=== PATIENT | female | born 1935 | race Caucasian/White ===

== ENCOUNTER 2017-03-03 14:06 | Inpatient (IN) | payer MEDICARE ==
--- NOTE | 2017-03-03 15:05 | RAD ---
INDICATION: Dizziness. COMPARISON: There are no prior studies available for comparison. TECHNIQUE: Contiguous axial sections of the brain were obtained from the skull base to the vertex without contrast. FINDINGS: The ventricles, cisterns and sulci are enlarged consistent with age-related atrophy. There are multiple focal areas of decreased density in the subcortical and periventricular white matter suggestive of moderate chronic small vessel ischemic changes. No other focal abnormality or mass effect is seen. There is no evidence for hemorrhage. No significant focal osseous abnormality is seen. The visualized portion of the paranasal sinuses and mastoid air cells appear clear. IMPRESSION: 1. NO EVIDENCE FOR GROSS ACUTE INFARCT, MASS EFFECT OR HEMORRHAGE. 2. FINDINGS MOST CONSISTENT WITH MODERATE CHRONIC SMALL VESSEL ISCHEMIC CHANGES.
[2017-03-03 15:22] LABS: Hematocrit 41 % (35-47); Hemoglobin 13.7 g/dl (12.0-16.0); Mean Corpuscular HGB Conc 34 g/dl (31-36); Mean Corpuscular Hemoglobin 31 pg (27-31); Mean Corpuscular Volume 93 fL (80-97); Mean Platelet Volume 8 um3 (7.4-10.4); Red Blood Count 4.37 10^6/ul (4.0-5.4); Red Cell Distribution Width 13 % (10.5-15); White Blood Count 6.4 10^3/ul (3.5-10.8)
[2017-03-03 15:43] LABS: Albumin 4.1 g/dL (3.2-5.2); BUN/Creatinine Ratio 15.4 (8-20); Calcium 9.7 mg/dL (8.6-10.3); EGFR African American 90.9 (>60); EGFR Non-African American 70.7 (>60); Globulin 3.8 g/dL (2-4); Potassium 3.7 mmol/L (3.5-5.0); Total Bilirubin 1.2 mg/dL (0.2-1.0); Total Protein 7.9 g/dL (6.4-8.9)
--- NOTE | 2017-03-03 15:51 | RAD ---
INDICATION: CVA. COMPARISON: There are no prior studies available for comparison. TECHNIQUE: A portable view of the chest was obtained. FINDINGS: The heart appears mildly enlarged. There is a small infiltrate which projects over the right midlung which appears to be in the right upper lobe. The left lung appears clear. No pleural effusion is seen. IMPRESSION: SMALL RIGHT UPPER LOBE INFILTRATE RECOMMEND FOLLOW-UP CHEST X-RAYS TO RESOLUTION.
[2017-03-03] MEDS ORDERED: Aspirin Low Dose CHEW TAB* 81 MG ONE (16:40)
[2017-03-03] MEDS ORDERED: Acetaminophen TAB* 325 MG PO PRN (16:40)
[2017-03-03] MEDS ORDERED: Aspirin Low Dose CHEW TAB* 81 MG PO ONE ×2 (16:40→16:42)
[2017-03-03] MEDS ORDERED: Ondansetron INJ* 2 MG/ML VIAL IV PRN (16:40)
--- NOTE | 2017-03-03 16:54 | ED ---
Martín Chau SooYoung, scribed for Kaleb Young on 03/03/17 at 1434 . Dizziness - HPI Summary HPI Summary: An 82 y/o F presents to ED with c/o lightheadedness onset yesterday AM. Pt lives alone and ambulates with a cane. Associated sx: unsteady gait. Per family , pt was behaving normally on . She thinks pt is speaking differently than normal, mildly slurred and slower. Denies numbness, weakness, CP, SOB, sore throat, fever, ear pain. No prev PMHx TIA/CVA. Non-smoker. No ETOH. Family is concerned pt may fall, she states she fell last night onto her knees. 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 Negative: Chest Pain, SOB, Fever - Allergies/Home Medications Allergies/Adverse Reactions: Allergies Allergy/AdvReac Type Severity Reaction Status Date / Time No Known Allergies Allergy Verified 03/03/17 14:39 Home Medications: Home Medications NK [No Home Medications Reported] 03/03/17 [History Confirmed 03/03/17] PMH/Surg Hx/FS Hx/Imm Hx Previously Healthy: No GI History: Reports: Other GI Disorders - diaphragm hernia Psychiatric History: Denies: Hx Autism - Cancer History Hx Chemotherapy: No Hx Radiation Therapy: No Infectious Disease History: Denies: History Other Infectious Disease, Traveled Outside the [place] in Last 30 Days - Family History Known Family History: Positive: None, Other - neg: breast CA - Social History Occupation: Retired Lives: Alone Alcohol Use: None Hx Substance Use: No Substance Use Type: Reports: None Hx Tobacco Use: No Smoking Status (MU): Never Smoked Tobacco Review of Systems Negative: Fever Negative: Sore Throat, Ear Ache Negative: Chest Pain Negative: Shortness Of Breath Neurological: Other - pos: lightheadedness Negative: Weakness, Numbness All Other Systems Reviewed And Are Negative: Yes Physical Exam Triage Information Reviewed: Yes Vital Signs On Initial Exam: Initial Vitals Temp Pulse Resp BP Pulse Ox 97.6 F 103 20 179/116 100 03/03/17 14:14 03/03/17 14:14 03/03/17 14:14 03/03/17 14:14 03/03/17 14:14 Vital Signs Reviewed: Yes Appearance: Positive: Well-Appearing, No Pain Distress Skin: Positive: Warm, Skin Color Reflects Adequate Perfusion, Dry Head/Face: Positive: Normal Head/Face Inspection Eyes: Positive: EOMI, OREN ENT: Positive: Normal ENT inspection Neck: Positive: Supple, Nontender Respiratory/Lung Sounds: Positive: Clear to Auscultation, Breath Sounds Present Cardiovascular: Positive: RRR, Pulses are Symmetrical in both Upper and Lower Extremities Abdomen Description: Positive: Nontender, Soft Bowel Sounds: Positive: Present Musculoskeletal: Positive: Normal, Strength/ROM Intact Neurological: Positive: Normal, Sensory/Motor Intact, Alert, Oriented to Person Place, Time Diagnostics - Vital Signs Vital Signs Temp Pulse Resp BP Pulse Ox 03/03/17 14:14 97.6 F 103 20 179/116 100 - Laboratory Result Diagrams: 03/03/17 14:43 03/03/17 14:43 Lab Statement: Any lab studies that have been ordered have been reviewed, and results considered in the medical decision making process. - Radiology CXR Xray Interpretation: No Acute Changes - IMPRESSION: SMALL RIGHT UPPER LOBE INFILTRATE RECOMMEND FOLLOW-UP CHEST X-RAYS TO RESOLUTION. ED physician has reviewed this radiology report and agrees. Radiology Interpretation Completed By: Radiologist - CT BRAIN CT CT Interpretation: No Acute Changes - IMPRESSION: 1. NO EVIDENCE FOR GROSS ACUTE INFARCT, MASS EFFECT OR HEMORRHAGE. 2. FINDINGS MOST CONSISTENT WITH MODERATE CHRONIC SMALL VESSEL ISCHEMIC CHANGES. ED physician has reviewed this radiology report and agrees. 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 Non-Paretic Hand: Both Correctly Best Gaze (Only Horizontal Eye Movement): Normal Visual Field Testing: No Visual Loss Facial Paresis-Pt to Smile & Close Eyes or Grimace Symmetry: Normal/Symmetrical Motor Function - Right Arm: No Drift-Holds 10 Seconds Motor Function - Left Arm: No Drift-Holds 10 Seconds Motor Function - Right Leg: No Drift-Holds 10 Seconds Motor Function - Left Leg: No Drift-Holds 10 Seconds Limb Ataxia-Must be out of Proportion to Weakness Present: Absent Sensory (Use Pinprick to Test Arms/Legs/Trunk/Face): Normal Best Language (Describe Picture, Name Items): No Aphasia Dysarthria (Read Several Words): Normal Extinction and Inattention: No Abnormality Total Score: 0 Re-Evaluation - Re-Evaluation 1 Re-Evaluation Time: 15:12 Change: Unchanged Comment: Pt is stable. 2 Re-Evaluation Time: 15:58 Change: Unchanged Comment: Discussing possible need for admission with pt and family. Dizzy Course/Dx - Course Course Of Treatment: An 82 y/o F c/o lightheadedness onset yesterday AM. Pt lives alone and ambulates with a cane. Associated sx: unsteady gait. Per family , pt was behaving normally on . She thinks pt is speaking differently than normal, mildly slurred and slower. Denies numbness, weakness, CP, SOB, sore throat, fever, ear pain. No prev PMHx TIA/CVA. Bloodwork obtained. UA pending at time of admission. Brain CT shows "1. NO EVIDENCE FOR GROSS ACUTE INFARCT, MASS EFFECT OR HEMORRHAGE. 2. FINDINGS MOST CONSISTENT WITH MODERATE CHRONIC SMALL VESSEL ISCHEMIC CHANGES." CXR shows " SMALL RIGHT UPPER LOBE INFILTRATE." - Diagnoses Provider Diagnoses: dizziness rule out TIA/CVA - Provider Notifications Discussed Care Of Patient With: Sandra Marcano - hospitalist Time Discussed With Above Provider: 15:58 Instructed by Provider To: Admit As Inpatient - Critical Care Time Critical Care Time: 30-74 min Discharge - Discharge Plan Condition: Stable Disposition: ADMITTED TO [facility] Referrals: Clary Chavez MD [Primary Care Provider] - The documentation as recorded by the Martín loera SooYoung accurately reflects the service I personally performed and the decisions made by me, Kaleb Young.
[2017-03-03] MEDS ORDERED: Zosyn per Pharmacy* NOTE FOLLOW UP SCH (17:00)
[2017-03-03 17:07] LABS: Urine Bacteria 1+ (Absent); Urine Bilirubin Negative (Negative); Urine Glucose Negative (Negative); Urine Nitrite Positive (Negative)
[2017-03-03] MEDS ORDERED: Iohexol 350* (CONTRAST) 500 ML MDV IV ONE (17:23)
--- NOTE | 2017-03-03 18:02 | RAD ---
INDICATION: Ataxia, CVA. COMPARISON: Comparison is made with a prior CT of the brain of the same date. TECHNIQUE: A CT angiogram of the head and neck was performed following intravenous injection of 80 ml of Omnipaque 350 nonionic contrast. Contiguous axial sections were obtained from the thoracic inlet through the skull vertex. Images were reconstructed in the coronal and sagittal planes and in a 3-D volume rendered format. The distal cervical internal carotid artery diameter is used as the denominator for stenosis measurement. FINDINGS: RIGHT CAROTID: The common and internal carotid arteries appear patent without evidence for hemodynamically significant stenosis. There is mild calcific plaque present within the carotid bulb. LEFT CAROTID: The common and internal carotid arteries appear patent without evidence for hemodynamically significant stenosis. There is mild calcific plaque present within the carotid bulb. VERTEBRALS: The vertebral arteries appear patent. CTA BRAIN: The internal carotid, anterior and middle cerebral arteries appear patent without evidence for high-grade stenosis or occlusion. The cavernous portion of the internal carotid arteries appear ectatic on both sides. The vertebral, basilar and posterior cerebral arteries appear patent without evidence for high-grade stenosis or occlusion. The basilar artery is small in caliber which is least partly due to the fact that both posterior cerebral arteries arise from the posterior communicating arteries. The visualized portion of the aortic arch appears tortuous and ectatic. No gross focal perfusion abnormalities are seen. No aneurysm or vascular malformation is seen. NECK: No significant enlarged lymph nodes are seen within the neck. The parotid and submandibular glands appear to be within normal limits. The thyroid gland appears small in caliber. There is bilateral apical pleural and parenchymal scarring. The sinuses are clear. IMPRESSION: NO EVIDENCE FOR CAROTID STENOSIS OR LARGE VESSEL INTRACRANIAL THROMBUS. CPT II Codes: 3100F
--- NOTE | 2017-03-03 21:27 | HP ---
CC: Dr. Galloway; Dr. Goode * HISTORY AND PHYSICAL: DATE OF ADMISSION: 03/03/17 PRIMARY CARE PROVIDER: None. ATTENDING PHYSICIAN WHILE IN THE HOSPITAL: Dr. Sandra Goldstein * (report dictated by Sandeep Lara NP) CONSULTING NEUROLOGIST: Dr. Galloway. CHIEF COMPLAINT: Unsteady gait. HISTORY OF PRESENT ILLNESS: Ms. Marr is an 82-year-old female patient, who only has a history of hiatal hernia. She does not see a physician. She says she has been told she has hypertension in the past, but has never taken any meds for. She comes into the ER today stating that night into Sunday morning, she woke up and was feeling dizzy, just feeling little lightheaded, it was much worse when she stood up and she noticed it when she was walking. She was always needing to hold on to something. Her daughter has noticed that she has been holding on things with her right side and the patient says that it feels like her right side feels off. There have been no reports of facial drooping. There have been reports of the patient's speech does appear to be slurred and they have noticed that her gait has been off and she has been having to hold on to things on her right side. She says she feels lightheaded and she says it does not feel like the room is spinning and she has no associated nausea and she denied having any visual changes. The family was concerned because they know their mother for the longest time has been walking independently without a cane and now she is using a cane, so they brought the patient to the hospital to be evaluated. PAST MEDICAL HISTORY: Significant for hiatal hernia. PAST SURGICAL HISTORY: Denied. MEDICATIONS: Home medications were denied. ALLERGIES TO MEDICATIONS: Include no known drug allergies. FAMILY HISTORY: Mother had a stroke in her 80s. Her father's history is unknown. SOCIAL HISTORY: She does not smoke. She does not drink. She lives alone. Surrogate decision maker is her daughter, Elaine, and her son. REVIEW OF SYSTEMS: There is no double vision. She denied having any ear discharge. There was no rhinorrhea. No sore throat. No thyroid enlargement. Denied having any chest pain. There was no orthopnea. She denied having any orthopnea, no nocturnal dyspnea. There is no abdominal pain. No nausea, no vomiting. There was no dysuria. She does admit to having urine that has been foul smelling in the last couple of days, but no dysuria or frequency. There has been no seizure, no loss of consciousness. No pruritus and no skin ulcerations. Review of 14 systems was completed, all others negative. PHYSICAL EXAMINATION GENERAL: At this time, Ms. Marr is an 82-year-old female patient. She appears to be well nourished, well developed. She does not appear to be in any acute distress. VITAL SIGNS: Reveal blood pressure 149/80 with a pulse of 75, respirations were 20, O2 sat was 98%, and temperature 97.6. HEENT: Head is atraumatic and normocephalic. Eyes: EOMs are intact. Sclerae anicteric and not pale. Throat: Oral mucosa appears to be moist. No oropharyngeal erythema. NECK: Supple. LUNGS: Clear to auscultation bilaterally. No wheezes, rales, or rhonchi. HEART: Sounds S1 and S2. Regular rate and rhythm. No murmurs, rubs, or gallops. ABDOMEN: Soft, it was flat and nontender. Bowel sounds present. EXTREMITIES: Pulses were 2+ throughout. She is able to move all 4 extremities with 5/5 strength. NEUROLOGIC: She is awake, she is alert, she is oriented x3. Her regional director of finance were equal. Her tongue is midline. [id number] on the right side, she definitely did have some discoordination. She has some discoordination on the right side, she was having trouble touching the tip of my finger, she was touching the side of my finger, and same with the nose, she was touching the side of her nose, cannot really get the tip of her nose. On the left side, it was completely intact. [id number] is intact bilaterally. Her gait definitely was ataxic. She was having difficulty with her right side. She needed to immediately grab on to me to help with her gait. No other gross focal deficits. SKIN: Grossly intact. DIAGNOSTIC STUDIES/LAB DATA: Today revealed WBC of 6.4, RBC of 4.37, hemoglobin 13.7, hematocrit 41, platelet count of 220. The INR was 0.93, PTT of 32.5. Carbon monoxide is less than 3.5. Her sodium was 137, potassium 3.7, chloride 103, bicarb 23, BUN 12, creatinine 0.78, glucose 101, lactate 1.4, calcium 9.7. Total bili 1.2, AST 21, ALT 11, alk phos 55. Troponin 0. Albumin of 4.1. There was a brain CT obtained today, which showed no evidence of gross acute infarct, mass effect, or hemorrhage. Findings most consistent with moderate chronic small vessel ischemic changes. Chest x-ray showed small right upper lobe infiltrate, recommend followup chest x - rays. EKG obtained today showed what appears to be a sinus rhythm, and then on the end of the rhythm, she does have a 3-beat run, which appears to be SVT, again it is hard to call this as AFib. She does not have any ST elevations or T-wave inversions. There is previous EKG, it appears to be similar but that SVT does appear to be new. Old medical records were reviewed. ASSESSMENT AND PLAN: Ms. Marr is an 82-year-old female patient coming into the ER today with complaints of difficulty with walking. On evaluation here, there was concern for ataxia, possible stroke, we were asked to evaluate for admission. She will be admitted under inpatient status for: 1. Ataxia. I am concerned that she may have had a posterior cerebrovascular accident. I did touch base with Dr. Galloway. We are going to go ahead and give her aspirin. We will check lipid panel, A1c. In addition to this, I will get an MRI, CTA of head and neck, echo, and we will put her on neuro checks. I did order PT/OT evaluation and I also ordered a swallow evaluation as well because there was report by family that a couple of days ago, she did choke on some oatmeal. She was sneezing and then she choked. So, I am concerned that she may have aspirated. I do not think it is related to her presentation, but the chest x-ray does show the right upper lobe infiltrate, so for the time being though we will get again Neurology involved and do CTA, echo, and MRI. 2. Aspiration pneumonia. Again, she aspirated 2 days ago prior to having her symptoms of ataxia. She was eating oatmeal and again did sneeze while she was eating and she choked after this. She does have right upper lobe infiltrate. I am going to go ahead and put her on Zosyn and again, I did order a bedside swallowing eval. If she passes up with nursing, we will go ahead and proceed with a heart- healthy diet. 3. DVT prophylaxis. For the time being, I am going to put her on SCDs with concern of posterior stroke. 4. Code status. Full code. 5. Fluids, electrolytes, and nutrition. Again, n.p.o. pending bedside swallow eval and she can be on a heart-healthy diet. 6. Hiatal hernia. We will set up a primary, she can follow. TIME SPENT: On the admission was approximately 60 minutes; greater than half the time was spent [id number] with the patient obtaining my history and physical, other half the time was spent going over the plan of care with the patient and implementing the plan of care. I did discuss plan of care with my attending, Dr. Goldstein; she is in agreement. SANDEEP LARA, SÁNCHEZ [id number]/CPS #: [id number] [place]
[2017-03-03] MEDS: ZOSYN 3.375 GM Q8H per EXTENDED INFUSION IVPB SCH ×2 (22:20)
[2017-03-04] MEDS: ZOSYN 3.375 GM Q8H per EXTENDED INFUSION IVPB SCH ×6 (04:58→20:32)
[2017-03-04 05:36] LABS: Hematocrit 37 % (35-47); Hemoglobin 12.4 g/dl (12.0-16.0); Mean Corpuscular HGB Conc 34 g/dl (31-36); Mean Corpuscular Hemoglobin 32 pg (27-31); Mean Corpuscular Volume 93 fL (80-97); Mean Platelet Volume 8 um3 (7.4-10.4); Red Blood Count 3.93 10^6/ul (4.0-5.4); Red Cell Distribution Width 13 % (10.5-15); White Blood Count 5.7 10^3/ul (3.5-10.8)
[2017-03-04 05:52] LABS: BUN/Creatinine Ratio 17.1 (8-20); Calcium 8.8 mg/dL (8.6-10.3); EGFR African American 93.7 (>60); EGFR Non-African American 72.9 (>60); HDL Cholesterol 59.9 mg/dL; Potassium 3.7 mmol/L (3.5-5.0)
[2017-03-04] MEDS: Aspirin Low Dose CHEW TAB* 81 MG PO SCH (09:17)
--- NOTE | 2017-03-04 12:37 | CONS ---
CONSULTATION REPORT: DATE OF CONSULT: 03/04/17 REQUESTING PRACTITIONER: Sandeep Lara NP REASON FOR CONSULT: Ataxia and wooziness ?stroke. HISTORY OF PRESENT ILLNESS: Antoinette Marr is an 82-year-old right-handed woman with minimal past medical history, not on medications, who presented to the emergency room after onset of new symptoms originally on 03/02/17. Mrs. Marr indicates that she was feeling okay on night. When she went to sleep, she noticed her left eye burning, but she did not notice any change in vision. Sunday morning she is not sure when she started feeling woozy , but noticed she had to hold on to cupboards to walk. She started using a cane and when her kids noticed that she was using a cane, encouraged her to come to the emergency room, which she did on Sunday, the . She was noted to have difficulty with ataxia on the right side and questioned to have stroke and was admitted for stroke workup. She has been started on aspirin. CT in the emergency room showed a moderate amount of small vessel ischemic disease in the periventricular area, this film was reviewed directly and agreed with the interpretation. In addition, there appeared to be a more distinct right parietal hypodense region. She also had a CTA of the brain and neck, which showed no significant stenosis or thrombosis, this film was reviewed directly. PAST MEDICAL HISTORY: Includes a hiatal hernia, for which she has not had surgery. She was told her cholesterol was up in the past and she changed her diet. She denies any history of hypertension. MEDICATIONS: She is on no medications. ALLERGIES: Has no known drug allergies. SOCIAL HISTORY: Mrs. Marr does not smoke or drink alcohol. She is a . She has a daughter who lives in [place], and a total of 3 children. REVIEW OF SYSTEMS: She denies chest pain, pressure, shortness of breath an palpitations. There has been no loss of vision. She denies any double vision. There has been no change in speech. No numbness or weakness of arms or legs that she can determine. No change in bowel or bladder habits. No cough. When asked about cold, she indicated her nose was running on when she was outdoors painting steps. There has been no rash to her knowledge. She denies any weight loss or drenching night sweats. She denied any vertigo until the very end of the consult when she mentioned that this morning, she turned toward her IV on the right and turned to the left and the room swirled for approximately 1 to 2 minutes. She denies change in mood or cognition. PHYSICAL EXAMINATION: On examination, Mrs. Marr's most recent temperature was 99.2 degrees Fahrenheit, this is the highest recording since admission. Her blood pressure was 148/71. (She has had blood pressure as high as 179 systolic and 116 diastolic in the emergency room and repeated high systolic since at 174, and diastolic at 104.) Pulse was noted at 70, respiratory rate 18 , saturation on room air 98%. She had a regular cardiac rhythm. No murmur was detected. No carotid bruit. Her lungs appeared clear to auscultation with exception of the question of some decreased air entry at the right upper lobe. She had no peripheral edema and peripheral pulses were intact. No rashes were noted. She is awake, alert, oriented to hospital events, person. She had normal language function. Her pupils were equal and responsive to light. Her fundi were flat with normal vasculature. She had full extraocular movements with no nystagmus and full brown to confrontation. Her facial expression, sensation were equal. Hearing was decreased to finger rub on the right side. The palate was upgoing. Tongue was midline. Sternocleidomastoid and trapezius were 5/5 in strength. There was normal bulk and tone with no pronator drift. She gave good strength in the upper and lower extremities with the exception of the right triceps, biceps at 5-/5, and right intrinsic hand muscles at 4+ to 5-/ 5. Her legs appeared to have equal strength. There was dysmetria noted with [id number] movements in the right arm that could be consistent with weakness. In the right leg, there was questioned to be slight dysmetria. She denies any asymmetries to pinprick, cold or light touch. Her vibration sensation was absent at the toes, decreased at the ankle by 20 seconds. Her reflexes were 2+ and symmetric in the upper and lower extremities with the exception of the ankles that were slightly diminished. She had upgoing toe on the right, down on the left. Gait was not tested given clinical status. DIAGNOSTIC STUDIES/LAB DATA: Includes lipid profile that showed a total cholesterol of 191, LDL was 120, HDL 59.9, triglycerides 57. She had a chest x-ray, which showed small right upper lobe infiltrate with suggestion of following this in the future. This film was reviewed directly. Urinalysis showed 3+ esterase, positive nitrite, 2+ white blood cell count, 1+ bacteria. Cultures should be pending. EKG showed [address] of the brain showed moderate small-vessel ischemic disease in the periventricular area and on my review, a question of right parietal old lesion. CTA of the brain showed no significant stenosis or thrombus. Please see reports for further details. Her initial CBC was normal and on repeat had slight decrease in red blood cell count and increase in MCH. Her INR and PTT were within normal limits. Her chemistry profile today was normal. Her glucose on admission was 101. Her total bilirubin on admission was 1.2 and otherwise her complete metabolic panel was normal. Her lactate was 1.4. IMPRESSION: Mrs. Marr is an 82-year-old right-handed woman with minimal past medical history, now with acute onset of "wooziness" with decreased balance and findings on exam of subtle right arm weakness and dysmetria on the right side greater than left, which could be consistent with weakness and a positive Babinski on the right. I agree with the differential diagnosis of stroke given acute onset of symptoms and findings on examination. She has been started on aspirin. I would start her atorvastatin. Her LDL was 120. There is some history to suggest she may have had high cholesterol in the past. Her blood pressure is running high, but I would hold on treating at this time unless it gets above 180/100 persistently to allow for perfusion. She is on telemetry. Echocardiogram and MRI have been ordered, which should help clarify etiology of symptoms. Consult is in for PT and OT. She had 1 episode of vertigo this morning of unclear etiology. This may be related to her original symptoms or separate; an MRI will help to clarify. We will continue to follow with you. There is also findings of urinary tract infection on urinalysis and cultures is pending. There was a right upper lobe infiltrate on chest x-ray with comment of need to follow in the future and this was discussed with Dr. Maria. She is currently on Zosyn. TIME SPENT: Over an hour was spent in direct [id number] patient care in addition to another 15 minutes reviewing films and coordinating care. All questions were answered. [id number]/[facility] #: [id number] CHELSEA
--- NOTE | 2017-03-04 16:16 | PN ---
Subjective Date of Service: 03/04/17 Interval History: Patient seen this morning with daughter present. Reports an episode of dizziness this morning when attempting to ambulate. Denies dysuria or urinary frequency but reports foul odor in urine. No coughing or fever. Family History: Unchanged from Admission Social History: Unchanged from Admission Past Medical History: Unchanged from Admission Objective Active Medications: Acetaminophen (Tylenol Tab*) 650 mg PO Q4H PRN Aspirin (Aspirin Low Dose Tab*) 81 mg PO DAILY [facility] Atorvastatin Calcium (Lipitor*) 10 mg PO 1700 [facility] Piperacillin Sod/Tazobactam (Sod 3.375 gm/ Sodium Chloride) 100 mls @ 25 mls/ hr IVPB Q8H MJ Ondansetron HCl (Zofran Inj*) 4 mg IV Q6H PRN Pharmacy Consult (Zosyn Per Pharmacy*) 1 note FOLLOW UP .ZOSYN PER PHARMACY [facility] Vital Signs 03/03/17 03/03/17 03/03/17 16:30 17:00 17:07 Temperature Pulse Rate 66 69 Respiratory 18 Rate Blood Pressure 160/104 170/84 (mmHg) O2 Sat by Pulse 97 98 Oximetry 03/04/17 03/04/17 03/04/17 07:38 09:22 11:04 Temperature 99.2 F Pulse Rate 51 73 Respiratory 18 18 Rate Blood Pressure 147/71 115/64 (mmHg) O2 Sat by Pulse 98 95 Oximetry 03/04/17 15:25 Temperature 98.6 F Pulse Rate 57 Respiratory 16 Rate Blood Pressure 113/70 (mmHg) O2 Sat by Pulse 97 Oximetry Oxygen Devices in Use Now: None Appearance: Elderly, F, laying in bed in NAD Eyes: No Scleral Icterus Ears/Nose/Mouth/Throat: Mucous Membranes Moist, - - poor dentition Neck: NL Appearance and Movements; NL JVP Respiratory: Symmetrical Chest Expansion and Respiratory Effort, Clear to Auscultation Cardiovascular: NL Sounds; No Murmurs; No JVD, RRR Abdominal: NL Sounds; No Tenderness; No Distention Lymphatic: No Cervical Adenopathy Extremities: No Edema Skin: No Rash or Ulcers Neurological: Alert and Oriented x 3, - - CN II-XII intact, maybe some slight decreased strenght in RUE, mild impairment of [id number] on the R side, sensation intact and symmetric, did not assess gait Result Diagrams: 03/04/17 05:26 03/04/17 05:25 Microbiology and Other Data: Microbiology 03/03/17 16:50 Urine Culture - Preliminary Urine Escherichia Coli Assess/Plan/Problems-Billing Assessment: Possible posterior CVA, ?UTI, aspiration PNA in an 82 yo F without much PMH - Patient Problems (1) CVA (cerebral vascular accident) Current Visit: Yes Comment: Appreciate Neurology assistance. Continue ASA, statin. CTA H/N unremarkable. Echo and MRI pending. (2) UTI (urinary tract infection) Current Visit: Yes Comment: Continue ABx for now, await cultures (3) Aspiration into airway Current Visit: Yes Comment: Had event a few days prior to admission. Continue ABx for now. May not need full course as she seems asymptomatic. (4) DVT prophylaxis Current Visit: Yes Comment: SCDs Status and Disposition: Inpatient for CVA work-up
[2017-03-04] MEDS ORDERED: Atorvastatin* 10 MG TAB PO SCH (17:00)
[2017-03-05] MEDS: ZOSYN 3.375 GM Q8H per EXTENDED INFUSION IVPB SCH ×6 (04:41→20:33)
[2017-03-05] MEDS: Aspirin Low Dose CHEW TAB* 81 MG PO SCH (09:55)
--- NOTE | 2017-03-05 13:33 | PN ---
Subjective Date of Service: 03/05/17 Interval History: No cough, SOB, chest pain. Walks OK with walker. No new c/o. Family History: Unchanged from Admission Social History: Unchanged from Admission Past Medical History: Unchanged from Admission Objective Active Medications: Acetaminophen (Tylenol Tab*) 650 mg PO Q4H PRN PRN Reason: FEVER/PAIN Aspirin (Aspirin Low Dose Tab*) 81 mg PO DAILY [facility] Last Admin: 03/05/17 09:55 Dose: 81 mg Atorvastatin Calcium (Lipitor*) 10 mg PO 1700 [facility] Last Admin: 03/04/17 17:33 Dose: Not Given Piperacillin Sod/Tazobactam (Sod 3.375 gm/ Sodium Chloride) 100 mls @ 25 mls/ hr IVPB Q8H [facility] Last Admin: 03/05/17 04:41 Dose: 25 mls/hr Ondansetron HCl (Zofran Inj*) 4 mg IV Q6H PRN PRN Reason: NAUSEA Pharmacy Consult (Zosyn Per Pharmacy*) 1 note FOLLOW UP .ZOSYN PER PHARMACY [facility] Vital Signs 03/04/17 03/04/17 03/04/17 15:25 18:18 19:22 Temperature 98.6 F 98.9 F Pulse Rate 57 73 Respiratory 16 20 16 Rate Blood Pressure 113/70 131/70 (mmHg) O2 Sat by Pulse 97 95 Oximetry 03/04/17 03/05/17 03/05/17 20:00 00:24 02:43 Temperature 98.1 F 98.3 F Pulse Rate 72 58 Respiratory 16 16 20 Rate Blood Pressure 136/79 143/82 (mmHg) O2 Sat by Pulse 96 94 Oximetry 03/05/17 03/05/17 07:31 08:00 Temperature 97.9 F Pulse Rate 58 Respiratory 18 18 Rate Blood Pressure 139/91 (mmHg) O2 Sat by Pulse 96 Oximetry Oxygen Devices in Use Now: None Appearance: Alert, sitting up in her bed. In good spirits. Looks comfortable. Eyes: No Scleral Icterus Neck: NL Appearance and Movements; NL JVP, No Thyroid Enlargement, Masses Respiratory: Symmetrical Chest Expansion and Respiratory Effort, Clear to Auscultation, Clear to Percussion Cardiovascular: NL Sounds; No Murmurs; No JVD, RRR, No Edema, - Skin: No Rash or Ulcers, No Nodules or Sclerosis, - Neurological: Alert and Oriented x 3, NL Sensation Result Diagrams: 03/04/17 05:26 03/04/17 05:25 Microbiology and Other Data: Microbiology 03/03/17 16:50 Urine Culture - Preliminary Urine Escherichia Coli Assess/Plan/Problems-Billing Assessment: Possible posterior CVA, ?UTI, aspiration PNA in an 82 yo F without much PMH - Patient Problems (1) CVA (cerebral vascular accident) Current Visit: Yes Status: Acute Code(s): I63.9 - CEREBRAL INFARCTION, UNSPECIFIED SNOMED Code(s): 768023684 Comment: Appreciate Neurology assistance. Continue ASA, statin. CTA H/N unremarkable. Echo and MRI pending. Increase atorvastatin to 20 mg daily. (2) Pneumonia Current Visit: Yes Status: Acute Code(s): J18.9 - PNEUMONIA, UNSPECIFIED ORGANISM SNOMED Code(s): 052799335 Comment: RUL infiltrate, possibly related to aspiration. Continue pip/tz. ST swallow eval pending. (3) UTI (urinary tract infection) Current Visit: Yes Status: Acute Comment: Continue ABx C&S showed E. coli lemus-sensitive. Status and Disposition: Inpatient for CVA work-up
[2017-03-05] MEDS ORDERED: Atorvastatin* 10 MG TAB PO SCH (13:37)
[2017-03-05] MEDS: Atorvastatin* 20 MG TAB PO SCH (17:07)
--- NOTE | 2017-03-05 18:58 | PN ---
PROGRESS NOTE: DATE OF FOLLOWUP: 03/05/17 HISTORY OF PRESENT ILLNESS: Antoinette Marr has no new complaints. She was out of bed with walker (with PT) and was noted to need a walker and guard assist with plans were at this point home discharge with home PT per PT report. The patient denies any chest pain, chest pressure, palpitations, change in vision, any further episodes of vertigo, change in speech, numbness or weakness of arms or legs. PHYSICAL EXAMINATION: On examination, her most recent vitals include a temperature of 97.7 degrees Fahrenheit, pulse is 74, respiratory rate 18, saturation 96%, and blood pressure 139/91. In review of her blood pressures, they have been variable and at nighttime down to 113/70. There has been no significant increase in temperature. She had a regular cardiac rhythm. Her lungs were clear to auscultation. She had full extraocular movements with no nystagmus. Full brown to confrontation. Her facial expression was symmetric. There was no dysarthria. She had a right pronator drift. There was subtle weakness noted in the right triceps at 4+ to 5-/5 and in the right hip flexion at 5-/5. The right biceps and intrinsic hand muscles on the right appeared to improve from yesterday. There was continued dysmetria in the right arm greater than leg. She denied any asymmetries to sensation. LABORATORY DATA/DIAGNOSTIC STUDIES: Hemoglobin A1c was 5.4. Urine culture grew out E. coli sensitive to Zosyn, which she is being treated with for both urinary tract infection as well as chest x-ray findings. IMPRESSION: Antoinette Marr is an 82-year-old woman with acute onset of wooziness and findings of right-sided dysfunction most consistent with a presumed ischemic stroke. Her MRI of the brain is pending. She is on telemetry. Echocardiogram is pending. She has been started on aspirin and atorvastatin. PT has been involved and OT has been consulted. She is being treated for urinary tract infection and her chest x-ray showed possible pneumonia versus alternative cause for changes and she will need followup in this regard, as discussed with hospitalist team yesterday. Dr. Garcia will be taking over service tomorrow and I will let him know on her ongoing evaluation. No new findings were noted on today's visit. [id number]/[facility] #: [id number] CHELSEA
[2017-03-06] MEDS: ZOSYN 3.375 GM Q8H per EXTENDED INFUSION IVPB SCH ×4 (04:31→13:50)
[2017-03-06] MEDS: Aspirin Low Dose CHEW TAB* 81 MG PO SCH (07:55)
--- NOTE | 2017-03-06 12:21 | RAD ---
Indication: Infarct in the brainstem, ataxia, stroke. Image sequences: Sagittal and axial T1, axial T2, FLAIR, diffusion and susceptibility weighted images of the brain were obtained. Ventricular structures are midline. No midline shift is noted. Central and cortical atrophy noted. Periventricular signal abnormality likely representing chronic ischemic White matter change is noted surrounding the deep white matter and periventricular white matter. There is a focal area of restriction of diffusion involving the toyin at the level of the cerebellar peduncles. This is just left of midline and is consistent with an acute infarct. Central and cortical atrophy is noted. Mastoid air cells and paranasal sinuses are otherwise unremarkable. IMPRESSION: Acute infarct in the toyin just left of midline. Chronic ischemic White matter change. No intracranial mass or hemorrhage is noted.
--- NOTE | 2017-03-06 12:23 | ECHO ---
Patient: JAYLEN HERERRA [facility] Rec#: [id number] : 1935 Date: 03/06/2017 Age: 82y Height: 170.18 cm / 67.0 in Weight: 63.5 kg / 140.0 lbs Sex: F BSA: 1.74 Room#: [facility] Admit Date#: 03/03/2017 Type: Inpatient Referring: Sandeep Lara NP Reading: Mynor De MD Dietary Aid: Aziza Betts RDCS Transthoracic Echocardiogram Indication: CVA, ataxia BP: 128/67 HR: 89 Rhythm: NSR with PVCs Findings History: Hernia. Technical Comments: The study quality is fair. The study is technically limited due to patient body habitus. Completed at 1030. Left Ventricle: The left ventricular chamber size is normal. Mild concentric left ventricular hypertrophy is observed. There is increased basal septal hypertrophy noted without evidence of an increased gradient across the left ventricular outflow tract. There is mildly decreased left ventricular systolic function. The estimated ejection fraction is 45-50%. There is no consistent Doppler evidence of clinically significant diastolic dysfunction. Left Atrium: The left atrium is mildly dilated. Right Ventricle: The right ventricular cavity size is normal. The right ventricular global systolic function is normal. Right Atrium: The right atrial cavity size is abnormally small. Interatrial septum appears intact without evidence of shunting. There were late bubbles seen in the left atrium. A patent foramen ovale is not demonstrated with color Doppler and agitated contrast. Aortic Valve: The aortic valve is trileaflet. The aortic valve leaflets are mildly thickened. There is mild to moderate aortic regurgitation. There is no evidence of aortic stenosis. Mitral Valve: There is anterior mitral annular calcification. The mitral valve leaflets are mildly thickened. There is mild mitral regurgitation. There is no evidence of mitral stenosis. Tricuspid Valve: The tricuspid valve leaflets are mildly thickened. There is mild tricuspid regurgitation. The right ventricular systolic pressure is estimated at 38 mmHg. There is evidence of mild pulmonary hypertension. There is no tricuspid stenosis. Pulmonic Valve: The pulmonic valve appears normal. There is mild pulmonic regurgitation. There is no pulmonic stenosis. Pericardium: There is no significant pericardial effusion. A pericardial fat pad is visualized. Aorta: There is moderate dilatation of the ascending aorta. There is no dilatation of the aortic arch. There is mild dilatation of the aortic root. Pulmonary Artery: The main pulmonary artery appears normal. Venous: The inferior vena cava is dilated. There is a greater than 50% respiratory change in the inferior vena cava dimension. Contrast: Normal saline was used as contrast for the bubble study. Images 1 and 2. Intravenous contrast was used to help determine presence of intracardiac shunting. Conclusions Mild concentric left ventricular hypertrophy is observed. There is increased basal septal hypertrophy noted without evidence of an increased gradient across the left ventricular outflow tract. The estimated ejection fraction is 45-50%. There is mild mitral regurgitation. The left atrium is mildly dilated. There is mild to moderate aortic regurgitation. There is moderate dilatation of the ascending aorta. There is mild dilatation of the aortic root. There is mild tricuspid regurgitation. There is evidence of mild pulmonary hypertension. There is mild pulmonic regurgitation. Interatrial septum appears intact without evidence of shunting. No reports of prior studies are offered for comparison. Measurements Name Value Normal Range RVIDd (AP) 2D 2.6 cm (0.9 - 2.6) RVDdMajor (2D) 2.4 cm (2.2 - 4.4) RAd ISD 4CH 3 cm (3.4 - 4.9) RA (A4C)W 3 cm (2.9 - 4.6) IVSd (2D) 1.2 cm (0.6 - 1) LVPWd (2D) 1.2 cm (0.6 - 1) LVIDd (2D) 4.5 cm (3.6 - 5.4) LVIDs (2D) 2.9 cm - LV FS (2D) 35 % (25 - 45) Aortic Annulus 2 cm (1.4 - 2.6) Ao root diameter (2D) 3.8 cm (2.1 - 3.5) Ascending Ao 5.1 cm (2.1 - 3.4) Aortic arch 3.4 cm (1.8 - 3.4) LA dimension (AP) 2D 3.9 cm (2.3 - 3.8) LAd ISD 4CH 3.5 cm (2.9 - 5.3) LA ISD 4CH W 4.3 cm (2.5 - 4.5) Name Value Normal Range LA ESV SP 4CH (A/L) 44 ml - LA ESV SP 2CH (A/L) 66 ml - LA ESV BP (A/L) 60 ml - LA ESV BP (A/L) index 34.24 ml/m2 - LA ESV SP 4CH (MOD) 39 ml - LA ESV SP 2CH (MOD) 59 ml - Name Value Normal Range MV E-wave Vmax 0.43 m/sec - MV deceleration time 371 msec - MV A-wave Vmax 0.59 m/sec - MV E:A ratio 0.73 ratio - LV septal e' Vmax 0.06 m/sec - LV lateral e' Vmax 0.08 m/sec - LV E:e' septal ratio 12.17 ratio - LV E:e' lateral ratio 5.38 ratio - Name Value Normal Range AV Vmax 1.71 m/sec - AV VTI 39.2 cm - AV peak gradient 11.63 mmHg - AV mean gradient 7.24 mmHg - LVOT Vmax 0.82 m/sec - LVOT VTI 15.18 cm - LVOT peak gradient 2.66 mmHg - LVOT mean gradient 1.54 mmHg - AR PHT 346 msec - AR peak gradient 78 mmHg - Name Value Normal Range TR Vmax 2.4 m/sec - TR peak gradient 23 mmHg - RAP 15 mmHg - RVSP 38 mmHg - IVC diameter 2.3 cm - Name Value Normal Range PV Vmax 0.65 m/sec - PV peak gradient 1.67 mmHg -
--- NOTE | 2017-03-06 13:13 | DCNOTE ---
Subjective Date of Service: 03/06/17 Interval History: Some fluctuation in her sx's but overall improved. No new c/o. Family History: Unchanged from Admission Social History: Unchanged from Admission Past Medical History: Unchanged from Admission Objective Active Medications: Acetaminophen (Tylenol Tab*) 650 mg PO Q4H PRN PRN Reason: FEVER/PAIN Aspirin (Aspirin Low Dose Tab*) 81 mg PO DAILY [facility] Last Admin: 03/06/17 07:55 Dose: 81 mg Atorvastatin Calcium (Lipitor*) 20 mg PO 1700 [facility] Last Admin: 03/05/17 17:07 Dose: 20 mg Piperacillin Sod/Tazobactam (Sod 3.375 gm/ Sodium Chloride) 100 mls @ 25 mls/ hr IVPB Q8H [facility] Last Admin: 03/06/17 04:31 Dose: 25 mls/hr Ondansetron HCl (Zofran Inj*) 4 mg IV Q6H PRN PRN Reason: NAUSEA Pharmacy Consult (Zosyn Per Pharmacy*) 1 note FOLLOW UP .ZOSYN PER PHARMACY [facility] Vital Signs 03/05/17 03/05/17 03/05/17 15:18 18:29 19:36 Temperature 98.0 F 98.5 F Pulse Rate 59 66 Respiratory 16 20 16 Rate Blood Pressure 128/77 134/74 (mmHg) O2 Sat by Pulse 96 95 Oximetry 03/05/17 03/05/17 03/06/17 20:00 23:36 03:40 Temperature 98.1 F 98.1 F Pulse Rate 66 63 Respiratory 16 20 20 Rate Blood Pressure 138/74 128/67 (mmHg) O2 Sat by Pulse 96 94 Oximetry 03/06/17 03/06/17 07:34 08:00 Temperature 98.2 F Pulse Rate 61 Respiratory 24 18 Rate Blood Pressure 148/79 (mmHg) O2 Sat by Pulse 96 Oximetry Oxygen Devices in Use Now: None Appearance: Alert, sitting up in bed. In good spirits. Looks comfortable. Neck: NL Appearance and Movements; NL JVP, No Thyroid Enlargement, Masses Respiratory: Symmetrical Chest Expansion and Respiratory Effort, Clear to Auscultation, Clear to Percussion Cardiovascular: NL Sounds; No Murmurs; No JVD, RRR, No Edema, - Extremities: No Edema, No Clubbing, Cyanosis, - Skin: No Rash or Ulcers, No Nodules or Sclerosis, - Neurological: Alert and Oriented x 3, NL Sensation, - - Speech clear and fluent. Moves all limbs. Result Diagrams: 03/04/17 05:26 03/04/17 05:25 Microbiology and Other Data: Microbiology 03/03/17 16:50 Urine Culture - Preliminary Urine Escherichia Coli Assess/Plan/Problems-Billing Assessment: Possible posterior CVA, ?UTI, aspiration PNA in an 82 yo F without much PMH - Patient Problems (1) CVA (cerebral vascular accident) Current Visit: Yes Status: Acute Code(s): I63.9 - CEREBRAL INFARCTION, UNSPECIFIED SNOMED Code(s): 475710673 Comment: Continue ASA, statin. CTA H/N unremarkable. Echo showed LVEF 45-50% , no significant valvular abnomalities. MRI showed an acute infarct in the L toyin . (2) Pneumonia Current Visit: Yes Status: Acute Code(s): J18.9 - PNEUMONIA, UNSPECIFIED ORGANISM SNOMED Code(s): 109135770 Comment: RUL infiltrate, possibly related to aspiration. Complete antibiotic tx with 5 days amox/clav as outpt. ST recommended mechanical soft diet with extra sauces/gravies, thin liquids. (3) UTI (urinary tract infection) Current Visit: Yes Status: Acute Comment: Continue ABx C&S showed E. coli lemus-sensitive. Status and Disposition: Discharge now to [facility].
--- NOTE | 2017-03-06 14:23 | DS ---
CC: Dr. Clary Chavez * DISCHARGE SUMMARY: DATE OF ADMISSION: 03/03/17 DATE OF DISCHARGE: 03/06/17 HISTORY: This 82-year-old woman presented with an unsteady gait. She had not seen a physician for many years and did not take any prescription medications at home. She said she was dizzy, a little lightheaded at home, worse when she got up. She said her right side felt off as well. Her speech may have been slurred at times according to her daughter. The rest of the history is detailed in the admission note. CT scan was nonrevealing. The patient was admitted to telemetry. She was seen in consultation by Dr. Goode. She had a transthoracic echo, which showed an LVEF of 45% to 50%, but no significant valvular abnormalities. MRI of the brain showed an acute stroke in the left toyin. The patient was started on aspirin and statin. I note her LDL was 120, HDL 59.9 , total cholesterol 191. Other labs were unremarkable. The patient also had a small infiltrate in the right lingular area. She was treated with piperacillin and tazobactam. She really showed few if any signs of pneumonia. I am going to complete her antibiotic therapy with 5 days of amoxicillin/clavulanate as an outpatient. FINAL DIAGNOSES: 1. Cerebrovascular accident. 2. Aspiration pneumonia. 3. Urinary tract infection. The patient's swallow eval showed she could tolerate mechanical soft diet with extra sauce and some gravies, and thin liquids. DISCHARGE MEDICATIONS: 1. Acetaminophen 650 mg every 4 hours p.r.n. 2. Aspirin 81 mg daily. 3. Atorvastatin 20 mg daily at 5 p.m. 4. Amoxicillin/clavulanate 875 mg b.i.d. for 5 days. [id number]/CPS #: [id number] MTDD
[2017-03-06 14:28] VITALS: BP 139/78
[2017-03-06] MEDS ORDERED: Influenza VAC *QUAD* 2017-18* 0.5 ML SYRINGE IM ONE (16:00)
[2017-03-06] MEDS ORDERED: Pneumococcal *Vac Polyvalent 0.5 ML VIAL IM ONE (16:00)
[2017-03-06] MEDS: Atorvastatin* 20 MG TAB PO SCH (16:10)
== END 2017-03-06 16:54 | DRG 64 ==
LOC: ED 14:06 → INTOOBSV 16:00 → MEDTELE 16:00 → OBSVTOIN 16:00
PROVIDERS: ADMIT Internal Medicine; ATTEND Internal Medicine
DX: I63.9 Cerebral infarction, unspecified (principal); J69.0 Pneumonitis due to inhalation of food and vomit; G81.91 Hemiplegia, unspecified affecting right dominant side; N39.0 Urinary tract infection, site not specified; B96.20 Unspecified Escherichia coli [E. coli] as the cause of diseases classified elsewhere
CPT/HCPCS: 36415; 70450; 70496; 70498; 70551; 71010; 80048; 80053; 80061; 81003; 81015; 82375; 83036; 83605; 84484; 85025; 85610; 85730; 87077; 87086; 87186; 93005; 93306; A9270-GY; G8978-GP-CL; G8979-GP-CH; J2543; Q9967

== ENCOUNTER 2022-01-24 14:41 | Inpatient (IN) ==
[2022-01-24] MEDS ORDERED: Lactated Ringers 1000 ml BAG 1,000 ML IV ONE ×2 (14:47→16:13)
[2022-01-24 15:55] LABS: Hematocrit 48 % (35-47); Hemoglobin 15.4 g/dL (12.0-16.0); Mean Corpuscular HGB Conc 32 g/dL (31-36); Mean Corpuscular Hemoglobin 32 pg (27-31); Mean Corpuscular Volume 99 fL (80-97); Red Blood Count 4.82 10^6 /uL (3.70-4.87); Red Cell Distribution Width 15 % (10-15)
[2022-01-24 15:57] LABS: High Sens Troponin Baseline 47 pg/mL (<15)
[2022-01-24 16:09] LABS: Urine Appearance Cloudy; Urine Color Amber; Urine Specific Gravity 1.015 (1.005-1.030); Urine pH 8.5 (5.0-9.0)
[2022-01-24 16:10] LABS: Urine Bilirubin 1+ (Small) (Negative); Urine Blood 3+ (Large) (Negative); Urine Glucose Negative (Negative); Urine Ketones Negative (Negative); Urine Nitrite Negative (Negative); Urine Protein 3+ (>=300 mg/dL) (Negative); Urine Urobilinogen 0.2 (Negative) (Negative)
[2022-01-24 16:17] LABS: Urine Bacteria Absent (Absent); Urine Red Blood Cell 3+(>10/hpf) (Absent); Urine Squamous Epithelial Cell Present (Absent); Urine White Blood Cell 3+(>20/hpf) (Absent)
[2022-01-24] MEDS ORDERED: cefTRIAXone 1 gm/50 mL D5W 1 GM/50 ML BAG IV ONE (16:19)
[2022-01-24 16:53] LABS: ALT 18 U/L (7-52); Albumin 2.8 g/dL (3.2-5.2); Albumin/Globulin Ratio 0.9 (1-3); Alkaline Phosphatase 52 U/L (35-149); CO2 Carbon Dioxide 18 mmol/L (22-32); Calcium 8.4 mg/dL (8.6-10.3); Creatine Kinase 635 U/L (10-223); Globulin 3.2 g/dL (2-4); Glucose 120 mg/dL (70-100); eGFR CKD-EPI 27.8 (>60)
[2022-01-24 17:14] LABS: High Sensitivity Troponin 1 Hr 52 pg/mL (<15)
[2022-01-24 17:16] LABS: Blood Urea Nitrogen 133 mg/dL (6-24)
[2022-01-24 17:19] LABS: Anion Gap 17 mmol/L (2-11); Chloride 124 mmol/L (101-111); Sodium 159 mmol/L (135-145)
[2022-01-24 17:34] LABS: ABS Lymphocytes 0.9 10^3/ul (1.0-4.8); ABS Neutrophils 12.1 10^3/ul (1.5-7.7); Lymphocyte % 6.4 %; Mean Platelet Volume 10.6 fL (7.4-10.4); Platelet Count 77 10^3/uL (150-450)
[2022-01-24 20:07] LABS: Potassium, Whole Blood 3.8 mmol/L (3.4-4.5)
[2022-01-24 20:17] LABS: Phosphorus 3.8 mg/dL (2.5-5.0); Potassium 3.6 mmol/L (3.5-5.0); eGFR CKD-EPI 24.2 (>60)
[2022-01-24] MEDS: NS 0.45% 1000 ml BAG 1,000 ML IV SCH (20:46)
[2022-01-24] MEDS ORDERED: Piperacillin/Tazobac ADVAN 3.375 GM in NS 0.9% 100 ml BAG 100 ML IV ONE (22:27)
[2022-01-24] MEDS ORDERED: Vancomycin 1,000 MG in NS 0.9% 250 ml 250 ML IVPB ONE (22:47)
[2022-01-24] MEDS ORDERED: Vancomycin per Pharmacy 1 EA NOTE FOLLOW UP SCH (23:00)
[2022-01-24] MEDS ORDERED: Zosyn per Pharmacy NOTE FOLLOW UP SCH (23:00)
[2022-01-25 01:03] LABS: Calcium 9.2 mg/dL (8.6-10.3); Potassium 3.8 mmol/L (3.5-5.0); eGFR CKD-EPI 21.3 (>60)
[2022-01-25 05:33] LABS: ABS Lymphocytes 1.2 10^3/ul (1.0-4.8); ABS Monocytes 0.6 10^3/ul (0-0.8); ABS Neutrophils 11.4 10^3/ul (1.5-7.7); Hematocrit 43 % (35-47); Hemoglobin 13.9 g/dL (12.0-16.0); Lymphocyte % 8.8 %; Mean Corpuscular HGB Conc 33 g/dL (31-36); Mean Corpuscular Hemoglobin 32 pg (27-31); Mean Corpuscular Volume 97 fL (80-97); Mean Platelet Volume 10.8 fL (7.4-10.4); Nucleated Red Blood Cells % 0.3; Platelet Count 70 10^3/uL (150-450); Red Blood Count 4.39 10^6 /uL (3.70-4.87); Red Cell Distribution Width 15 % (10-15); White Blood Count 13.2 10^3/uL (3.5-10.8)
[2022-01-25 05:52] LABS: Calcium 8.9 mg/dL (8.6-10.3); Phosphorus 3.8 mg/dL (2.5-5.0); Potassium 3.7 mmol/L (3.5-5.0); eGFR CKD-EPI 21.8 (>60)
[2022-01-25] MEDS: NS 0.45% 1000 ml BAG 1,000 ML IV SCH (08:00)
[2022-01-25 08:49] LABS: Urine Creatinine Concentration 69.54 mg/dL; Urine Sodium Concentration < 18 mmol/L
[2022-01-25] MEDS: Pantoprazole VIAL 40 MG VIAL IV SCH (10:09)
[2022-01-25] MEDS: cefTRIAXone 2 gm/50 mL D5W 2 GM/50 ML BAG IV SCH (10:14)
[2022-01-25 11:00] LABS: Activated Partial Thrombo Time 32.9 seconds (26.0-38.0); INR 1.24 (0.89-1.11)
[2022-01-25] MEDS: Collagenase 250 units/gm OINT 1 tube TOPICAL SCH ×2 (14:22→15:54)
[2022-01-25] MEDS: Heparin 5000 UNITS/ML 1 mL VIAL SUBCUT SCH ×2 (14:22→22:38)
[2022-01-25] MEDS: Acetaminophen IV 1 GM/100ML 100 ML IV PRN (14:23)
[2022-01-25 16:19] LABS: Albumin 2.8 g/dL (3.2-5.2); Albumin/Globulin Ratio 0.9 (1-3); Calcium 8.6 mg/dL (8.6-10.3); Direct Bilirubin 0.3 mg/dL (0.03-0.18); Indirect Bilirubin 1.2 mg/dL (0.3-1.0); Potassium 3.4 mmol/L (3.5-5.0); Total Bilirubin 1.5 mg/dL (0.2-1.0); Total Protein 5.8 g/dL (6.4-8.9); eGFR CKD-EPI 20.5 (>60)
[2022-01-25] MEDS ORDERED: Potassium Chloride LIQUID 20 MEQ/15 ML LIQUID PO ONE (16:44)
[2022-01-26 01:30] LABS: CO2 Carbon Dioxide 17 mmol/L (22-32); Calcium 8.3 mg/dL (8.6-10.3); Sodium 152 mmol/L (135-145)
[2022-01-26 01:31] LABS: Anion Gap 11 mmol/L (2-11); Chloride 124 mmol/L (101-111)
[2022-01-26 01:36] LABS: Glucose 151 mg/dL (70-100); eGFR CKD-EPI 19.9 (>60)
[2022-01-26 01:48] LABS: Potassium, Whole Blood 3.8 mmol/L (3.4-4.5)
[2022-01-26 02:06] LABS: Blood Urea Nitrogen 147 mg/dL (6-24)
[2022-01-26] MEDS: NS 0.45% 1000 ml BAG 1,000 ML IV SCH ×2 (03:39→10:11)
[2022-01-26 05:22] LABS: ABS Lymphocytes 0.8 10^3/ul (1.0-4.8); ABS Monocytes 0.2 10^3/ul (0-0.8); ABS Neutrophils 11.8 10^3/ul (1.5-7.7); Hematocrit 39 % (35-47); Hemoglobin 12.9 g/dL (12.0-16.0); Lymphocyte % 6.2 %; Mean Corpuscular HGB Conc 33 g/dL (31-36); Mean Corpuscular Hemoglobin 32 pg (27-31); Mean Corpuscular Volume 97 fL (80-97); Mean Platelet Volume 10.7 fL (7.4-10.4); Nucleated Red Blood Cells % 0.1; Platelet Count 60 10^3/uL (150-450); Red Blood Count 4.07 10^6 /uL (3.70-4.87); Red Cell Distribution Width 15 % (10-15); White Blood Count 12.8 10^3/uL (3.5-10.8)
[2022-01-26] MEDS: Heparin 5000 UNITS/ML 1 mL VIAL SUBCUT SCH ×3 (05:50→21:12)
[2022-01-26 05:53] LABS: Calcium 8.2 mg/dL (8.6-10.3); Magnesium 2.9 mg/dL (1.9-2.7); Vancomycin Random 9.3 mcg/mL; eGFR CKD-EPI 21.8 (>60)
[2022-01-26] MEDS ORDERED: Vancomycin Random Level NOTE FOLLOW UP ONE (06:00)
[2022-01-26] MEDS: cefTRIAXone 2 gm/50 mL D5W 2 GM/50 ML BAG IV SCH (09:18)
[2022-01-26] MEDS ORDERED: Albumin Human 5% 12.5 GM/250 ML BTL IV ONE (09:18)
[2022-01-26] MEDS: Pantoprazole VIAL 40 MG VIAL IV SCH (09:18)
[2022-01-26] MEDS: Collagenase 250 units/gm OINT 1 tube TOPICAL SCH (11:13)
[2022-01-26] MEDS: Lactated Ringers 1000 ml BAG 1,000 ML IV SCH ×2 (11:34→19:30)
[2022-01-26 12:37] LABS: Calcium 8.1 mg/dL (8.6-10.3); Potassium 3.9 mmol/L (3.5-5.0); eGFR CKD-EPI 22.1 (>60)
[2022-01-26] MEDS: Acetaminophen IV 1 GM/100ML 100 ML IV PRN (14:04)
[2022-01-26 19:47] LABS: Calcium 8.1 mg/dL (8.6-10.3); eGFR CKD-EPI 24.5 (>60)
[2022-01-27 00:27] LABS: Blood Urea Nitrogen 80 mg/dL (6-24); Glucose 100 mg/dL (70-100); eGFR CKD-EPI 49.5 (>60)
[2022-01-27 00:30] LABS: Anion Gap 9 mmol/L (2-11); CO2 Carbon Dioxide 13 mmol/L (22-32); Calcium 5.3 mg/dL (8.6-10.3); Chloride 130 mmol/L (101-111); Sodium 152 mmol/L (135-145)
[2022-01-27 01:38] LABS: Calcium 7.1 mg/dL (8.6-10.3); Potassium 3.4 mmol/L (3.5-5.0); eGFR CKD-EPI 34.8 (>60)
[2022-01-27] MEDS ORDERED: Potassium Chloride LIQUID 20 MEQ/15 ML LIQUID PO ONE (01:57)
[2022-01-27] MEDS: Lactated Ringers 1000 ml BAG 1,000 ML IV SCH ×4 (02:45→23:45)
[2022-01-27 05:03] LABS: Magnesium 2.7 mg/dL (1.9-2.7); Potassium 4.2 mmol/L (3.5-5.0); eGFR CKD-EPI 31.5 (>60)
[2022-01-27 05:27] LABS: Hematocrit 34 % (35-47); Hemoglobin 10.9 g/dL (12.0-16.0); Mean Corpuscular HGB Conc 32 g/dL (31-36); Mean Corpuscular Hemoglobin 31 pg (27-31); Mean Corpuscular Volume 98 fL (80-97); Mean Platelet Volume 11.2 fL (7.4-10.4); Platelet Count 57 10^3/uL (150-450); Red Blood Count 3.46 10^6 /uL (3.70-4.87); Red Cell Distribution Width 15 % (10-15); White Blood Count 12.2 10^3/uL (3.5-10.8)
[2022-01-27] MEDS: Heparin 5000 UNITS/ML 1 mL VIAL SUBCUT SCH ×3 (06:31→23:39)
[2022-01-27 07:28] LABS: RBC Morphology Normal (Normal)
[2022-01-27 07:29] LABS: ABS Lymphocytes 0.8 10^3/ul (1.0-4.8); ABS Monocytes 0.2 10^3/ul (0-0.8); ABS Neutrophils 11.1 10^3/ul (1.5-7.7); Eosinophil % 0.1 %; Lymphocyte % 6.8 %; Nucleated Red Blood Cells % 0.1
[2022-01-27] MEDS: cefTRIAXone 2 gm/50 mL D5W 2 GM/50 ML BAG IV SCH (09:05)
[2022-01-27] MEDS: Collagenase 250 units/gm OINT 1 tube TOPICAL SCH (09:05)
[2022-01-27] MEDS: Pantoprazole VIAL 40 MG VIAL IV SCH (09:06)
[2022-01-27] MEDS: Acetaminophen IV 1 GM/100ML 100 ML IV PRN (10:08)
[2022-01-27 18:19] LABS: Calcium 7.8 mg/dL (8.6-10.3); Magnesium 2.5 mg/dL (1.9-2.7); Potassium 3.9 mmol/L (3.5-5.0); eGFR CKD-EPI 39.3 (>60)
[2022-01-28] MEDS: Heparin 5000 UNITS/ML 1 mL VIAL SUBCUT SCH ×3 (06:14→21:15)
[2022-01-28 06:29] LABS: ABS Eosinophils 0.1 10^3/ul (0-0.6); ABS Lymphocytes 0.6 10^3/ul (1.0-4.8); ABS Monocytes 0.3 10^3/ul (0-0.8); ABS Neutrophils 9.6 10^3/ul (1.5-7.7); Eosinophil % 0.6 %; Hematocrit 31 % (35-47); Hemoglobin 10.4 g/dL (12.0-16.0); Lymphocyte % 5.6 %; Mean Corpuscular HGB Conc 33 g/dL (31-36); Mean Corpuscular Hemoglobin 32 pg (27-31); Mean Corpuscular Volume 97 fL (80-97); Mean Platelet Volume 11.6 fL (7.4-10.4); Nucleated Red Blood Cells % 0.2; Platelet Count 69 10^3/uL (150-450); Red Blood Count 3.21 10^6 /uL (3.70-4.87); Red Cell Distribution Width 15 % (10-15); White Blood Count 10.6 10^3/uL (3.5-10.8)
[2022-01-28 06:41] LABS: Calcium 7.7 mg/dL (8.6-10.3); Magnesium 2.3 mg/dL (1.9-2.7); Potassium 4.3 mmol/L (3.5-5.0)
[2022-01-28] MEDS: Lactated Ringers 1000 ml BAG 1,000 ML IV SCH (07:03)
[2022-01-28] MEDS: cefTRIAXone 2 gm/50 mL D5W 2 GM/50 ML BAG IV SCH (08:30)
[2022-01-28] MEDS: Pantoprazole VIAL 40 MG VIAL IV SCH (08:35)
[2022-01-28] MEDS ORDERED: D5W 1000 ml BAG 1,000 ML IV SCH (12:00)
[2022-01-28 13:06] LABS: Calcium 7.9 mg/dL (8.6-10.3); Potassium 4.4 mmol/L (3.5-5.0); eGFR CKD-EPI 53.2 (>60)
[2022-01-28] MEDS: Collagenase 250 units/gm OINT 1 tube TOPICAL SCH (13:21)
[2022-01-28 19:22] LABS: Calcium 7.7 mg/dL (8.6-10.3); Potassium 4.6 mmol/L (3.5-5.0); eGFR CKD-EPI 57.3 (>60)
[2022-01-28] MEDS: Acetaminophen IV 1 GM/100ML 100 ML IV PRN (21:15)
[2022-01-29] MEDS: D5W 1000 ml BAG 1,000 ML IV SCH ×2 (01:04→14:49)
[2022-01-29 01:05] LABS: INR 1.03 (0.89-1.11)
[2022-01-29 01:06] LABS: Activated Partial Thrombo Time 35.8 seconds (26.0-38.0)
[2022-01-29] MEDS ORDERED: LORazepam 2 mg VIAL 1 ml IV PUSH ONE (01:10)
[2022-01-29] MEDS ORDERED: Lorazepam PYXIS KEY PRN (01:10)
[2022-01-29] MEDS ORDERED: Phenol 1.4% Throat Spray 177 ml BTL MT ONE (01:10)
[2022-01-29] MEDS: Heparin 5000 UNITS/ML 1 mL VIAL SUBCUT SCH (05:43)
[2022-01-29 06:24] LABS: Hematocrit 31 % (35-47); Mean Corpuscular HGB Conc 33 g/dL (31-36); Mean Corpuscular Hemoglobin 31 pg (27-31); Mean Corpuscular Volume 96 fL (80-97); Mean Platelet Volume 10.8 fL (7.4-10.4); Platelet Count 81 10^3/uL (150-450); Red Blood Count 3.17 10^6 /uL (3.70-4.87); Red Cell Distribution Width 15 % (10-15); White Blood Count 12.1 10^3/uL (3.5-10.8)
[2022-01-29 06:55] LABS: Calcium 7.7 mg/dL (8.6-10.3); Magnesium 2.1 mg/dL (1.9-2.7); Potassium 4.2 mmol/L (3.5-5.0); eGFR CKD-EPI 56.6 (>60)
[2022-01-29 08:09] LABS: ABS Eosinophils 0.1 10^3/ul (0-0.6); ABS Lymphocytes 0.9 10^3/ul (1.0-4.8); ABS Monocytes 0.5 10^3/ul (0-0.8); ABS Neutrophils 10.6 10^3/ul (1.5-7.7); Eosinophil % 0.7 %; Lymphocyte % 7.2 %; Nucleated Red Blood Cells % 0.1
[2022-01-29] MEDS: Pantoprazole VIAL 40 MG VIAL IV SCH (09:48)
[2022-01-29] MEDS: cefTRIAXone 2 gm/50 mL D5W 2 GM/50 ML BAG IV SCH (09:48)
[2022-01-29] MEDS: Collagenase 250 units/gm OINT 1 tube TOPICAL SCH (09:49)
[2022-01-29] MEDS: Acetaminophen IV 1 GM/100ML 100 ML IV PRN (11:29)
[2022-01-29 15:13] LABS: Hematocrit 26 % (35-47); Hemoglobin 8.1 g/dL (12.0-16.0)
[2022-01-29] MEDS ORDERED: NS 0.9% 1000 ml BAG 1,000 ML IV ONE (15:46)
[2022-01-29 15:49] LABS: Calcium 7.1 mg/dL (8.6-10.3); Potassium 4.4 mmol/L (3.5-5.0); eGFR CKD-EPI 54.5 (>60)
[2022-01-29 16:13] LABS: Hematocrit 26 % (35-47); Hemoglobin 8.2 g/dL (12.0-16.0)
[2022-01-29] MEDS ORDERED: Lactated Ringers 1000 ml BAG 1,000 ML IV SCH (17:00)
[2022-01-29] MEDS ORDERED: Ondansetron 4 mg VIAL 2 MG/ML 2 ml VIAL IV PRN (17:30)
[2022-01-29] MEDS ORDERED: Morphine 2 MG/ML SYRINGE IV PRN (17:30)
[2022-01-29] MEDS ORDERED: LORazepam 2 mg VIAL 1 ml IV PUSH PRN (17:30)
[2022-01-29] MEDS ORDERED: Atropine 1% (ORAL/SL) 15 ML BTL SL PRN (17:30)
[2022-01-29] MEDS ORDERED: Pantoprazole VIAL 40 MG VIAL IV SCH (21:00)
[2022-01-29] MEDS: Morphine ORAL CONCENTRATE 5 MG/0.25 ML ORAL.SYRIN PO PRN (23:37)
[2022-01-30] MEDS: Morphine ORAL CONCENTRATE 5 MG/0.25 ML ORAL.SYRIN PO PRN ×3 (02:31→22:23)
[2022-01-30 12:36] VITALS: BP 105/58
[2022-01-30] MEDS: Collagenase 250 units/gm OINT 1 tube TOPICAL SCH (13:53)
[2022-01-31] MEDS: Morphine ORAL CONCENTRATE 5 MG/0.25 ML ORAL.SYRIN PO PRN ×2 (04:11→22:24)
[2022-01-31] MEDS: Collagenase 250 units/gm OINT 1 tube TOPICAL SCH (13:20)
[2022-02-02] MEDS: Morphine ORAL CONCENTRATE 5 MG/0.25 ML ORAL.SYRIN PO PRN (15:40)
[2022-02-02] MEDS: Collagenase 250 units/gm OINT 1 tube TOPICAL SCH ×2 (15:41→16:22)
[2022-02-03] MEDS ORDERED: Senna TAB 8.6 mg TAB PO PRN (07:25)
[2022-02-03] MEDS ORDERED: Magnesium Hydroxide LIQ 30 ML UDC PO PRN (07:25)
[2022-02-03] MEDS: Collagenase 250 units/gm OINT 1 tube TOPICAL SCH (09:48)
[2022-02-03] MEDS: Polyethylene Glycol 3350 17 GM PACKET PO SCH (09:48)
[2022-02-03] MEDS: Morphine ORAL CONCENTRATE 5 MG/0.25 ML ORAL.SYRIN PO PRN ×2 (16:30→23:03)
[2022-02-04] MEDS: Morphine ORAL CONCENTRATE 5 MG/0.25 ML ORAL.SYRIN PO PRN ×3 (05:08→15:56)
[2022-02-04] MEDS: Polyethylene Glycol 3350 17 GM PACKET PO SCH (09:47)
[2022-02-04] MEDS: Collagenase 250 units/gm OINT 1 tube TOPICAL SCH (13:42)
[2022-02-04] MEDS ORDERED: COVID-19 VACCINE, MRNA(MODERNA)/PF 100 MCG/0.5 ML IM ONE (15:00)
[2022-02-05] MEDS: Morphine ORAL CONCENTRATE 5 MG/0.25 ML ORAL.SYRIN PO PRN (13:45)
[2022-02-05] MEDS: Polyethylene Glycol 3350 17 GM PACKET PO SCH (13:46)
[2022-02-05] MEDS: Collagenase 250 units/gm OINT 1 tube TOPICAL SCH (13:46)
== END 2022-02-05 15:04 | disposition short-term general hospital (02) | DRG 871 ==
LOC: ED 14:41 → SUATTDRO 18:15 → EDHOLD 18:15 → ICU 22:22 → MED 01-27 12:57
PROVIDERS: ADMIT Internal Medicine Critical Care Medicine; ATTEND Internal Medicine

== ENCOUNTER 2022-02-05 15:05 | Inpatient (IN) ==
[2022-02-05] MEDS ORDERED: Polyethylene Glycol 3350 17 GM PACKET PO PRN (15:31)
[2022-02-05 16:13] VITALS: BP 114/56
[2022-02-05] MEDS: Morphine ORAL CONCENTRATE 5 MG/0.25 ML ORAL.SYRIN SL PRN (18:12)
[2022-02-06] MEDS: Collagenase 250 units/gm OINT 1 tube TOPICAL SCH (07:52)
[2022-02-06] MEDS: Morphine ORAL CONCENTRATE 5 MG/0.25 ML ORAL.SYRIN SL PRN (22:58)
[2022-02-07] MEDS: Collagenase 250 units/gm OINT 1 tube TOPICAL SCH (09:06)
[2022-02-07] MEDS: Morphine ORAL CONCENTRATE 5 MG/0.25 ML ORAL.SYRIN SL PRN ×4 (09:10→21:35)
[2022-02-08] MEDS: Morphine ORAL CONCENTRATE 5 MG/0.25 ML ORAL.SYRIN SL PRN ×8 (00:39→22:07)
[2022-02-08] MEDS: Collagenase 250 units/gm OINT 1 tube TOPICAL SCH (09:57)
[2022-02-09] MEDS: Morphine ORAL CONCENTRATE 5 MG/0.25 ML ORAL.SYRIN SL PRN ×6 (01:55→21:25)
[2022-02-09] MEDS: Collagenase 250 units/gm OINT 1 tube TOPICAL SCH (12:09)
[2022-02-10] MEDS: Morphine ORAL CONCENTRATE 5 MG/0.25 ML ORAL.SYRIN SL PRN ×6 (00:34→16:01)
[2022-02-10] MEDS: Collagenase 250 units/gm OINT 1 tube TOPICAL SCH (08:40)
[2022-02-11] MEDS: Morphine ORAL CONCENTRATE 5 MG/0.25 ML ORAL.SYRIN SL PRN ×4 (01:04→22:11)
[2022-02-11] MEDS: Collagenase 250 units/gm OINT 1 tube TOPICAL SCH (12:26)
[2022-02-12] MEDS: Morphine ORAL CONCENTRATE 5 MG/0.25 ML ORAL.SYRIN SL PRN ×9 (06:11→23:12)
[2022-02-12] MEDS: Collagenase 250 units/gm OINT 1 tube TOPICAL SCH (08:19)
[2022-02-13] MEDS: Morphine ORAL CONCENTRATE 5 MG/0.25 ML ORAL.SYRIN SL PRN ×2 (02:07→05:15)
[2022-02-13] MEDS ORDERED: Atropine 1% (ORAL/SL) 15 ML BTL SL PRN (03:13)
[2022-02-13] MEDS ORDERED: Scopolamine 1 mg/72hr PATCH TRANSDERM SCH (04:00)
[2022-02-13] MEDS: Collagenase 250 units/gm OINT 1 tube TOPICAL SCH (09:01)
[2022-02-14] MEDS: Collagenase 250 units/gm OINT 1 tube TOPICAL SCH (07:49)
== END 2022-02-14 09:09 | disposition expired | DRG 592 ==
LOC: SUATTDRO 15:05 → MED 15:05
PROVIDERS: ADMIT Physician Assistant; ATTEND Internal Medicine